=== PATIENT | male | born 1975 | race Caucasian/White ===

== ENCOUNTER 2020-04-05 02:06 | Outpatient (CLI) | payer OTHER, SELFPAY ==
[2020-04-05 07:30] LABS: HCT 44.6 % (40.0-50.0); HGB 14.8 g/dL (13.5-17.5); MCH 30.8 pg (27.0-33.0); MCHC 33.2 % (32.0-36.0); MCV 92.7 fL (80-95); MPV 9.2 fL (8.0-11.0); Platelet Count 301 10^3/uL (130-400); RBC 4.81 10^6/uL (4.36-5.78); RDW 11.7 % (11.8-14.1); RDW-SD 39.8 fL; WBC 4.67 10^3/uL (4.4-10.8)
[2020-04-05 07:41] LABS: ALT 63 U/L (16-63); AST 28 U/L (15-37); Albumin 4.2 g/dL (3.4-5.0); Alkaline Phosphatase 52 U/L (46-116); Anion Gap 6.1 mmol/L (3-11); BUN 14 mg/dL (7-18); Bilirubin, Total 0.4 mg/dL (0.2-1.0); CO2 29.9 mmol/L (21.0-32.0); CREATININE 1.22 mg/dL (0.70-1.30); Calcium 8.9 mg/dL (8.5-10.1); Calculated LDL 135 mg/dL (<100); Chloride 105 mmol/L (98-107); Cholesterol 199 mg/dL (<200); Glucose 103 mg/dL (74-106); HDL Cholesterol 42 mg/dL (40-60); Potassium 3.8 mmol/L (3.5-5.1); Sodium 141 mmol/L (136-145); TROPONIN-I 9.9 ug/mL (4.0-12.0); Total Protein 7.2 g/dL (6.4-8.2); Triglyceride 110 mg/dL (<150)
[2020-04-06 16:33] LABS: Lamotrigine 3.8 mcg/mL (2.5 - 15.0)
== END 2020-04-05 02:26 ==
PROVIDERS: PCP Family Medicine; Visit Provider Family Medicine
DX: E78.5 Hyperlipidemia, unspecified; R10.9 Unspecified abdominal pain; Z51.81 Encounter for therapeutic drug level monitoring; Z79.899 Other long term (current) drug therapy; G40.509 Epileptic seizures related to external causes, not intractable, without status epilepticus
CPT/HCPCS: 36415; 80053; 80061; 80175; 85027; 80156

== ENCOUNTER 2022-05-16 03:19 | Outpatient (CLI) | payer OTHER, SELFPAY ==
[2022-05-16 07:39] LABS: Abs Immature Grans 0.01 10^3/uL (0.0-0.06); Absolute Basophil Count 0.03 10^3/uL (0.0-0.2); Absolute Eosinophil Count 0.23 10^3/uL (0.0-0.7); Absolute Lymphocyte Count 1.91 10^3/uL (1.2-3.4); Absolute Monocyte Count 0.54 10^3/uL (0.1-0.8); Absolute Neutrophil Count 2.17 10^3/uL (1.2-6.7); Basophils % 0.6; Eosinophils % 4.7; HCT 46.9 % (40.0-50.0); HGB 15.7 g/dL (13.5-17.5); Immature Grans % 0.2; Lymphocytes % 39.1; MCH 30.9 pg (27.0-33.0); MCHC 33.5 % (32.0-36.0); MCV 92 fL (80-95); MPV 9.7 fL (8.0-11.0); Neutrophils % 44.4; Platelet Count 276 10^3/uL (130-400); RBC 5.08 10^6/uL (4.36-5.78); RDW 11.7 % (11.8-14.1); RDW-SD 39.5 fL; WBC 4.89 10^3/uL (4.4-10.8)
[2022-05-16 08:42] LABS: Calculated LDL 145 mg/dL (<100); Cholesterol 217 mg/dL (<200); HDL Cholesterol 48 mg/dL (40-60); T4 5.3 ug/dL (4.7-13.3); TROPONIN-I 8.7 ug/mL (4.0-12.0); Triglyceride 121 mg/dL (<150)
[2022-05-16 08:47] LABS: ALT 64 U/L (16-63); AST 28 U/L (15-37); Albumin 4.2 g/dL (3.4-5.0); Alkaline Phosphatase 63 U/L (46-116); Anion Gap 6.3 mmol/L (3-11); BUN 16 mg/dL (7-18); Bilirubin, Direct 0.2 mg/dL (0.0-0.2); Bilirubin, Total 0.5 mg/dL (0.2-1.0); CO2 29.7 mmol/L (21.0-32.0); CREATININE 1.3 mg/dL (0.70-1.30); Calcium 9.7 mg/dL (8.5-10.1); Chloride 104 mmol/L (98-107); Estimated GFR 69.47 (mL/min/1.73m2); Glucose 104 mg/dL (74-106); Potassium 3.8 mmol/L (3.5-5.1); Sodium 140 mmol/L (136-145); TSH 3.86 uIU/mL (0.36-3.74); Total Protein 7.4 g/dL (6.4-8.2)
[2022-05-18 12:38] LABS: Lamotrigine 3.2 mcg/mL (3.0-15.0)
== END 2022-05-16 03:20 | disposition home or self-care (01) ==
LOC: LBO 03:24
PROVIDERS: PCP Family Medicine; Visit Provider Family Medicine
DX: G40.209 Localization-related (focal) (partial) symptomatic epilepsy and epileptic syndromes with complex partial seizures, not intractable, without status epilepticus; Z79.899 Other long term (current) drug therapy
CPT/HCPCS: 36415; 80048; 80053; 80061; 80076; 80175; 80156; 84436; 84443; 85025

== ENCOUNTER 2024-05-01 03:05 | Outpatient (CLI) | payer OTHER, SELFPAY ==
[2024-05-01 08:16] LABS: Calculated LDL 115 mg/dL (<100); Cholesterol 192 mg/dL (<200); HDL Cholesterol 55 mg/dL (40-60); Triglyceride 111 mg/dL (<150)
== END 2024-05-01 03:06 | disposition home or self-care (01) ==
LOC: LBO 03:05
PROVIDERS: PCP Family Medicine; Visit Provider Family Medicine
DX: E78.5 Hyperlipidemia, unspecified (principal)
CPT/HCPCS: 36415; 80061

== ENCOUNTER 2025-01-07 01:26 | Outpatient (CLI) | payer OTHER, SELFPAY ==
[2025-01-07 08:25] LABS: Triglyceride 71 mg/dL (<150)
== END 2025-01-07 01:27 | disposition home or self-care (01) ==
LOC: LBO 01:26
PROVIDERS: PCP Family Medicine; Visit Provider Family Medicine
DX: E78.1 Pure hyperglyceridemia (principal)
CPT/HCPCS: 36415; 84478

== ENCOUNTER 2025-06-18 01:28 | Outpatient (CLI) | payer OTHER, SELFPAY ==
[2025-06-18 16:13] LABS: ALT 95 U/L (10-49); AST 32 U/L (<34); Albumin 4.4 g/dL (3.2-5.0); Alkaline Phosphatase 103 U/L (46-116); Bilirubin, Direct 0.3 mg/dL (<=0.3); Bilirubin, Total 0.60 mg/dL (0.2-1.2); Total Protein 6.8 g/dL (5.7-8.2)
== END 2025-06-18 01:29 | disposition home or self-care (01) ==
LOC: LOS 01:28
PROVIDERS: PCP Family Medicine; Visit Provider Family Medicine
DX: G72.89 Other specified myopathies (principal)
CPT/HCPCS: 36415; 80076